=== PATIENT | female | born 1995 | race African-American/Black ===

== ENCOUNTER 2017-03-31 00:18 | Emergency (ER) | payer SELFPAY ==
[~2017-03-31] VITALS: Ht 152.4 cm; Wt 97.5 kg
[~2017-03-31 00:18] MED LIST: MOTRIN400 MG PO; NO MEDICATIONS; PREDNISONE10 MG PO
[2017-03-31 01:39] LABS: URINE APPEARANCE CLEAR; URINE BILIRUBIN NEG (NEG); URINE BLOOD NEG (NEG); URINE COLOR YELLOW; URINE GLUCOSE NEG (NEG); URINE KETONE NEG (NEG); URINE LEUKOCYTE ESTERASE TRACE (NEG); URINE NITRATE NEG (NEG); URINE PROTEIN NEG (NEG); URINE SPECIFIC GRAVITY 1.019 (1.003-1.035)
[2017-03-31 01:42] LABS: CULTURE INDICATED? YES; U HYALINE CASTS AUWI 0-2 /[LPF]; URINE BACTERIA AUWI 1+ (NEGATIVE); URINE SQUAMOUS EPITHELIAL CELL OCC /[HPF]
== END 2017-03-31 02:27 | disposition home or self-care (01) ==
LOC: CED 00:18
PROVIDERS: Nurse Practitioner Family
DX: S39.012A Strain of muscle, fascia and tendon of lower back, initial encounter (principal); F17.200 Nicotine dependence, unspecified, uncomplicated; X58.XXXA Exposure to other specified factors, initial encounter
CPT/HCPCS: 81003; 84703; 87086; 87088; 99283